=== PATIENT | male | born 1975 | race Caucasian/White ===

== ENCOUNTER → 2018-02-17 09:39 | Outpatient (CLI) | payer BC, SELFPAY ==
[2018-02-17 12:41] LABS: T4 Free Direct 0.96 ng/dL (0.76-1.46); Thyroid Stim Hormone (TSH) 1.48 uIU/mL (0.358-3.74)
== END ==
PROVIDERS: Family Provider Family Medicine; PCP Family Medicine; Visit Provider Family Medicine
DX: R61 Generalized hyperhidrosis (principal); E78.5 Hyperlipidemia, unspecified; F32.9 Major depressive disorder, single episode, unspecified; R39.11 Hesitancy of micturition; R31.9 Hematuria, unspecified
CPT/HCPCS: 36415; 84403; 84439; 84443; 87086

== ENCOUNTER 2018-02-27 18:12 | Emergency (ER) | payer BC, SELFPAY ==
[2018-02-27 18:13] VITALS: BP 149/99; PULSE 73; RESP 16; TEMP 36.7; O2SAT 97; BMI 26.6
--- NOTE | 2018-02-27 19:32 | ED.VISSUMM ---
- ER Visit Summary Date of Service: 02/27/18 Chief Complaint: Right groin discomfort History of Present Illness: The patient is a 42 M developed right groin discomfort last night. Intermittent today currently not very severe. Denies any trauma. 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 He has never had a hernia before. He thought he felt a bulge. Currently he is being treated for prostatitis on Cipro. Currently denies any dysuria. No testicular or groin trauma. Physical Examination: Well-appearing middle-age male. Vital signs are stable afebrile. H EENT exam normal lungs clear regular rate and rhythm no murmur. Abdomen soft. Nontender nondistended normal bowel sounds. No peritoneal signs. Sternal exam normal penis. Testicles and scrotum nontender nonswollen. No masses. No signs of torsion. Left inguinal canal unremarkable right inguinal canal appears to have sliding hernia. No masses appreciated. Test Results: None Emergency Department Course and Treatment: Discharged to follow-up with outpatient surgery evaluation for right inguinal hernia. Treatment Plan: Follow up with surgery for outpatient hernia evaluation. Disposition: Discharge Impression: Right inguinal hernia. This note was generated with [employer] dictation software. It may contain incorrect words, spelling, and punctuation that were not noted in review of the chart prior to signing ED Disposition - Plan for ED Patient: Chief Complaint: Male Pain/Injury Referrals: Brad Ballesteros MD [Primary Care Provider] -
--- NOTE | 2018-02-27 19:34 | ED.DEP ---
ED Disposition - Plan for ED Patient: Disposition: Home or Assisted Living Chief Complaint: Male Pain/Injury Instructions: ED Hernia Inguinal Referrals: Riccardo Valdez MD [STAFF PHYSICIAN] - 1-2 Weeks Additional Instructions: Motrin for pain. It appears you have a right inguinal hernia. Call follow-up with a general surgeon for evaluation.
== END 2018-02-27 19:54 | disposition home or self-care (01) ==
PROVIDERS: Emergency Provider Emergency Medicine; Family Provider Family Medicine; PCP Family Medicine
DX: K40.90 Unilateral inguinal hernia, without obstruction or gangrene, not specified as recurrent (principal)
CPT/HCPCS: 99282

== ENCOUNTER → 2019-05-27 | Outpatient (CLI) | payer BC, SELFPAY ==
[2018-03-06 14:06] VITALS: BMI 26.6
[2019-05-27 17:49] LABS: Erythrocyte Sedimentation Rate 7 mm/hr (0-15)
[2019-05-27 17:50] LABS: Hematocrit 42.5 % (40-54); Hemoglobin 13.8 g/dL (13.0-16.5); Mean Corp Hgb Conc 32.5 g/dL (32-36); Mean Corpuscular Hgb 28.5 pg (27.0-32.0); Mean Corpuscular Volume 87.8 fL (80-94); Mean Platelet Vol. 9.8 fl (6.2-12.0); Platelet Count 251 K/mm3 (150-450); RBC Distribution Width CV 12.8 % (11.6-14.6); RBC Distribution Width SD 40.9 fl (35.1-43.9); Red Blood Count 4.84 M/mm3 (4.6-6.2); White Blood Count 8.4 K/mm3 (4.4-11.0)
[2019-05-27 18:20] LABS: T4 Total, Thyroxin 8.8 ug/dL (4.5-12.1); Thyroid Stim Hormone (TSH) 2.82 uIU/mL (0.358-3.74)
[2019-05-29 20:07] LABS: Endomysial Antibody IgA Negative (Negative)
[2019-05-31 17:07] LABS: Immunoglobulin A 123 mg/dL (90-386); t-Transglutaminase IgA <2 U/mL (0-3)
== END | disposition home or self-care (01) ==
LOC: MTLAB 16:59
PROVIDERS: Family Provider Family Medicine; PCP Family Medicine; Referring Provider Internal Medicine Gastroenterology; Visit Provider Internal Medicine Gastroenterology
DX: R19.4 Change in bowel habit (principal); R10.9 Unspecified abdominal pain
CPT/HCPCS: 36415; 82784; 83516; 84436; 84443; 85027; 85652; 86255

== ENCOUNTER → 2023-09-25 | Outpatient (CLI) | payer BC, SELFPAY ==
--- NOTE | 2023-09-25 16:01 | RAD_ITS ---
EXAM: XR LEFT SHOULDER COMPLETE, 2 OR MORE VIEWS CLINICAL INDICATION: PAIN TECHNIQUE: Two or more views of the left shoulder. COMPARISON: 08/09/2016 FINDINGS: BONES/JOINTS: No significant abnormality. No acute fracture. No subluxation. Normal alignment. Preservation of the joint space. No sclerotic or destructive changes observed. SOFT TISSUES: Cloudlike calcification within the soft tissues along the expected course of the rotator cuff measuring up to approximately 3.5 cm. No soft tissue swelling or gas. No radiopaque foreign body. RAD/Shoulder min 2 Views IMPRESSION: Calcific tendinopathy of the rotator cuff. No acute osseous findings. Electronically Signed: Clemente Carlin DO at 23:36 EST ,
--- NOTE | 2023-09-25 16:01 | RAD_ITS ---
STUDY: X-RAY - RIGHT FOOT CLINICAL: Male, 48 years old. PAIN BASE OF SECOND TOE TECHNIQUE: 3 view(s) of the foot. COMPARISON: None. FINDINGS: There is an enthesophyte involving the posterior superior calcaneus at the site of insertion of the Achilles tendon. Normal visualized subtalar, talonavicular, calcaneocuboid, tarsal and tarsometatarsal articulations. Normal metatarsi. There is degenerative arthrosis of the metatarsophalangeal joint of the hallux . Normal tibial and fibular sesamoid bones. Normal interphalangeal joint of the great toe. Normal phalanges of the great toe. Normal second through fifth metatarsophalangeal joints. Normal interphalangeal joints and phalanges of the lesser toes. Borderline soft tissue swelling surrounding the ankle and dorsum of the foot. There is no demonstrated fracture. 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 No acute fracture or subluxation. Electronically Signed: Ladan Don MD at 22:11 EST ,
== END | disposition home or self-care (01) ==
PROVIDERS: PCP Nurse Practitioner Family; Referring Provider Nurse Practitioner Family; Visit Provider Nurse Practitioner Family
DX: M25.512 Pain in left shoulder (principal); M79.671 Pain in right foot
CPT/HCPCS: 73030; 73630

== ENCOUNTER → 2025-04-15 | Outpatient (CLI) | payer BC, SELFPAY ==
[2025-04-15 15:55] LABS: Absolute Lymphocyte Count 2.05 X10^3/uL (0.83-4.51); Absolute Neutrophil Count 5.1 X10^3/uL (2.0-7.7); Basophil# 0.04 X10^3/uL; Basophil% 0.5 % (0-1); Eosinophil# 0.13 X10^3/uL; Eosinophils% 1.6 % (0-5); Hematocrit 43.1 % (40-54); Hemoglobin 13.9 g/dL (13.0-16.5); Lymphocyte # 2.05 X10^3/ul (0.83-4.51); Lymphocyte % 25.7 % (19-41); Mean Corp Hgb Conc 32.3 g/dL (32-36); Mean Corpuscular Hgb 28.7 pg (27.0-32.0); Mean Platelet Vol. 10.2 fl (6.2-12.0); Monocyte# 0.67 X10^3/uL; Monocyte% 8.4 % (0-10); NRBC Flagged by Analyzer 0 % (0-5); Neutrophil # 5.07 X10^3/uL (2.7-7.7); Neutrophil % 63.5 % (47-70); Platelet Count 246 K/mm3 (150-450); RBC Distribution Width CV 13.5 % (11.6-14.6); RBC Distribution Width SD 43.9 fl (35.1-43.9); Red Blood Count 4.84 M/mm3 (4.6-6.2)
[2025-04-15 16:14] LABS: ALB/GLOB Ratio 1.7 RATIO (0.9-2.4); AST(SGOT) 18 U/L (<=37); Alanine Aminotransfer ALT/SGPT 23 U/L (<=46); Albumin, Serum 4.3 g/dL (3.5-5.0); Alkaline Phosphatase 95 U/L (40-129); Anion Gap 12 (5-15); BUN 16 mg/dL (4-19); Carbon Dioxide 22.9 mmol/L (21.0-32.0); Chloride 105 mmol/L (98-108); Cholesterol 147 mg/dL (<=200); Creatinine, Serum 0.73 mg/dL (0.70-1.20); EST Glomerular Filtration Rate 111 (>60); Globulin 2.5 g/dL (2.2-4.2); Glucose 91 mg/dL (70-99); High Density Lipoprotein 42 mg/dL; Low Density Lipoprotein Calc. 81 mg/dL; PSA,Total - Annual Screen 0.41 ng/mL (0.02-4.00); Potassium 4.1 mmol/L (3.3-5.1); Protein, Total 6.8 g/dL (5.9-8.4); Sodium Level 140 mmol/L (133-145); Total Bilirubin 0.36 mg/dL (0.00-1.30); Triglycerides 123 mg/dL; Very Low Density Lipoprotein 25 mg/dL (5-40); cholesterol:hdl ratio screen 3.53
[2025-04-15 17:56] LABS: Microalbumin,Random Urine < 12.0 mg/L (NO RANGE EST.); Microalbumin:Creatinine Ratio UNABLE TO CALCULATE mg/g CRE
--- OUTSIDE RECORDS SUMMARY | 2025-04-15 20:13 | XMS RPT_ITS | CCD ---
Author Organization [facility] Care Team Providers Care Post Secondary Professional Name Role Phone SUZANNE HELLER Unavailable Unavailable Maria Esther Yang Referring Unavailable Maria Esther Yang Attending Unavailable Maria Esther Yang Primary Care Unavailable Unavailable Primary Care Provider Unavailabl e Medications Current Medications Medication Drug Class(es) Dates Sig (Normalized) Sig (Original) amoxicillin 875 mg / clavulanate 125 mg oral tablet (1 source) Penicillin-class Antibacterial Start: 01-11-2024 End: 01-18-2024 take 1 tablet by mouth twice daily amoxicillin-clav ulanate potassium (AUGMENTIN) 875-125 mg per tablet Indications: Bacterial sinusitis Take 1 tablet by mouth two times a day for 7 days. 14 tablet 0 01/11/2024 01/18/2024 Active Comment on above: Take 1 tablet by jacinda th two times a day for 7 days. Completed/Discontinued Medications Medication Drug Class(es) Dates Sig (Normalized) Sig (Original) amLODIPine 2.5 mg oral tablet (1 source) Dihydropyridine Calcium Channel Jazmyn Start: 12-11-2023 take 1 tablet by mouth once amLODIPine (NORVASC) 2.5 mg tablet Take 1 tablet by mouth every afternoon. 0 12/11/2023 Active Comment on above: Take 1 tablet by jacinda th every afternoon. atorvastatin 20 mg oral tablet (1 source) HMG-CoA Reductase Inhibitor Start: 04-04-2012 take 0.5 tablet by mouth once daily atorvastatin (LIPITOR) 20 mg tablet Take 0.5 tablets by mouth once daily. 30 tablet 5 04/04/2012 Active Comment on above: Take 0.5 tablets by mouth once daily. Problems Active Problems Problem Classification Problem Date Documented Da te Episodic/Chronic Alcohol-related disorders (1 source) Alcohol use, unspecified with intoxication, unspecified; Translations: [Alcohol use, unspecified with intoxication, unspecified (HCC)] Onset: 04-26-2018 Episodic Disorders of lipid metabolism (1 source) Mixed hyperlipidemia; Translations: [Mixed hyperlipidemia] Onset: 05-28-2007 11-21-2009 Chronic Other non-traumatic joint disorders (1 source) Pain in left shoulder; Translations: [Pain in left shoulder] Onset: 10-17-2023 Episodic Other upper respiratory infections (1 source) Bacterial sinusitis; Translations: [Chronic sinusitis, unspecified] 01-11-2024 Chronic Unclassified (1 source) Alcohol Intoxication / [id number]() Onset: 04-26-2018 Past or Other Problems Problem Classification Problem Date Documented Date Episodic/Chronic Mycoses (1 source) Onychomycosis due to dermatophyte ; Translations: [Tinea unguium] Onset: 03-22-2010 04-06-2010 Episodic Other connective tissue disease (1 source) Tendinitis; Translations: [Enthesopathy, unspecified] Onset: 03-22-2010 04-06-2010 Episodic Other connective tissue disease (1 source) Pain in limb; Translations: [Pain in unspecified limb] Onset: 08-02-2010 01-04-2011 Episodic Other skin disorders (1 source) Ingrowing nail; Translations: [Ingrowing nail] Onset: 08-02-2010 01-04-2011 Episodic Results Test Name Value Interpretation Reference Range Facility [facility] 01-11-2024 CNOV Office Visit (UCWSTR ) IDA BENNETT ([id number]) 1975 M Date Time Provider Department 01/11/24 11:00 AM NANCY LORENZO [facility] During your visit today, we recorded the following information about you: Temperature Pulse Respiration Blood pressure 97.9 degrees 74/minute 16/minute 122/72 Weight 95.7 kg Nancy Lorenzo APRN.AMBULATORY ANALYST 01/11/2024 11:11 AM Signed Subjective Sinus Problem Associated symptoms include congestion and coughing. Pertinent negatives include no chills, fever, headaches, myalgias or sore throat. Ida Bennett is a 48 year old male who presents with sinus congestion and drainage for the past week. He has noticed left maxillary sinus tenderness but also recently had a dental procedure done on the upper left last week. He denies fever, chills. He has been taking OTC sinus medication. Notices a lot of post nasal drainage at night which causes him to cough. Review of Systems Constitutional: Negative for chills and fever. HENT: Positive for congestion and sinus pain. Negative for ear pain and sore throat. Respiratory: Positive for cough and sputum production. Negative for shortness of breath. Cardiovascular: Negative. Musculoskeletal: Negative for myalgias. Neurological: Negative for dizziness and headaches. BP 122/72 Pulse 74 Temp 36.6 ?C (97.9 ?F) Resp 16 Wt 95.7 kg (210 lb 15.7 oz) SpO2 98% PAST MEDICAL HISTORY Diagnosis Date Hyperlipidemia PAST SURGICAL HISTORY Procedure Laterality Date COLONOSCOPY 12/18/2001 Dr. Leo -- negative ALLERGIES Patient has no known allergies. MEDICATIONS atorvastatin (LIPITOR) 20 mg tablet Take 0.5 tablets by mouth once daily. amLODIPine (NORVASC) 2.5 mg tablet Take 1 tablet by mouth every afternoon. FAMILY HISTORY Problem Relation Age of Onset Heart Father Pacer, ? mild heart attack Ischemic Heart Disease Maternal Uncle Social History Tobacco Use Smoking status: Never Smokeless tobacco: Never Substance Use Topics Alcohol use: Yes Comment: occasional Drug use: No Objective Physical Exam Vitals and nursing note reviewed. Constitutional: General: He is not in acute distress. Appearance: Normal appearance. He is not ill-appearing. HENT: Right Ear: Tympanic membrane, ear canal and external ear normal. Left Ear: Tympanic membrane, ear canal and external ear normal. Nose: Nasal tenderness, mucosal edema, congestion and rhinorrhea present. Left Sinus: Maxillary sinus tenderness present. Mouth/Throat: Mouth: Mucous membranes are moist. Pharynx: Oropharynx is clear. Uvula midline. No oropharyngeal exudate or posterior oropharyngeal erythema. Cardiovascular: Rate and Rhythm: Normal rate and regular rhythm. Heart sounds: Normal heart sounds. Pulmonary: Effort: Pulmonary effort is normal. No respiratory distress. Breath sounds: Normal breath sounds. No wheezing or rales. Musculoskeletal: Cervical back: Neck supple. Lymphadenopathy: Cervical: No cervical adenopathy. Skin: General: Skin is warm and dry. Findings: No erythema or rash. Neurological: Mental Status: He is alert. ASSESSMENT/PLAN: 1. Bacterial sinusitis - ICD9: 473.9, 041.9, ICD10: J32.9, B96.89 - Will begin treatment with as per antibiotic as written, see orders - The patient should also be given flonase nasal spray for the first 5-7 days of treatment. - Supportive care with plenty of fluids, rest, and analgesia prn. - AMOXICILLIN 875 MG-POTASSIUM CLAVULANATE 125 MG TABLET - Follow-up with your PCP in 3-5 days if symptoms have not improved or sooner if symptoms worsen - Discussed red flags and need for immediate medical evaluation if any occur. - Discussed supportive care treatment with fluids, rest and analgesia. - Discussed expected course of illness MARA Ling Kathy, APRN.CNP 01/11/2024 11:11 AM Signed ASSESSMENT/PLAN: 1. Bacterial sinusitis - ICD9: 473.9, 041.9, ICD10: J32.9, B96.89 - Will begin treatment with as per antibiotic as written, see orders - The patient should also be given flonase nasal spray for the first 5-7 days of treatment. - Supportive care with plenty of fluids, rest, and analgesia prn. - AMOXICILLIN 875 MG-POTASSIUM CLAVULANATE 125 MG TABLET - Follow-up with your PCP in 3-5 days if symptoms have not improved or sooner if symptoms worsen - Discussed red flags and need for immediate medical evaluation if any occur. - Discussed supportive care treatment with fluids, rest and analgesia. - Discussed expected course of illness Nancy Lorenzo APRN.CNP Adult Sinusitis Patient Education What is Sinusitis? Sinusitis [tbin-nhz-uenz-tis] is inflammation of the sinuses or swelling of the lining of the sinus cavity or nose. During an infection the sinuses become blocked with fluid causing swelling of the lining of the sinuses. Symp (more content not included)... Normal [facility] Foot min 3 Viewson 3 Foot min 3 Views [facility] Imaging Services [address] [place] [address] Foot min 3 Views MR#: [id number] Acct: [id number] Name: IDA BENNETT Rep #: [id number] : 1975 M 48 From: Ladan Don MD PCP: NARENDRA Lewis Status: REG CLI Study: Foot min 3 Views Date of Exam: 09/25/23 Exam# [id number] Ordering Dr: Maria Esther Yang [id number] STUDY: X-RAY - RIGHT FOOT CLINICAL: Male, 48 years old. PAIN BASE OF SECOND TOE TECHNIQUE: 3 view(s) of the foot. COMPARISON: None. FINDINGS: There is an enthesophyte involving the posterior superior calcaneus at the site of insertion of the Achilles tendon. Normal visualized subtalar, talonavicular, calcaneocuboid, tarsal and tarsometatarsal articulations. Normal metatarsi. There is degenerative arthrosis of the metatarsophalangeal joint of the hallux . Normal tibial and fibular sesamoid bones. Normal interphalangeal joint of the great toe. Normal phalanges of the great toe. Normal second through fifth metatarsophalangeal joints. Normal interphalangeal joints and phalanges of the lesser toes. Borderline soft tissue swelling surrounding the ankle and dorsum of the foot. There is no demonstrated fracture. 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 No acute fracture or subluxation. Electronically Signed: Ladan Don MD at 22:11 EST , CC: NARENDRA Yang Building Illuminating Engineer: Signed Normal [facility] Shoulder min 2 Viewson 09-25 Shoulder min 2 Views [facility] Imaging Services [address] [place] [address] Shoulder min 2 Views MR#: [id number] Acct: [id number] Name: IDA BENNETT Rep #: [id number] : 1975 M 48 From: Clemente gordillo DO PCP: NARENDRA Lewis Status: REG CLI Study: Shoulder min 2 Views Date of Exam: 09/25/23 Exam# [id number] Ordering Dr: Maria Esther Yang [id number] EXAM: XR LEFT SHOULDER COMPLETE, 2 OR MORE VIEWS CLINICAL INDICATION: PAIN TECHNIQUE: Two or more views of the left shoulder. COMPARISON: 08/09/2016 FINDINGS: BONES/JOINTS: No significant abnormality. No acute fracture. No subluxation. Normal alignment. Preservation of the joint space. No sclerotic or destructive changes observed. SOFT TISSUES: Cloudlike calcification within the soft tissues along the expected course of the rotator cuff measuring up to approximately 3.5 cm. No soft tissue swelling or gas. No radiopaque foreign body. RAD/Shoulder min 2 Views IMPRESSION: Calcific tendinopathy of the rotator cuff. No acute osseous findings. Electronically Signed: Clemente Carlin DO at 23:36 EST , CC: ETHANOL OPERATOR-C Maria Esther Yang Building Illuminating Engineer: Signed Normal [facility] BASIC METABOLIC PANELon - Anion gap 12 mmol/L Normal - [facility] Comment on above: Performed By: #### L AB99, LAB15, LAB20, LAB62 ####[facility] [id number] [place] [address] [facility]#### [id number], LAB46 ####[facility] [id number] [place] [address] [facility] GKE[address] [place], [place] [phone] BUN (urea nitrogen) 13 mg/dL Normal -18 [facility] Comment on above: Performed By: #### L AB99, LAB15, LAB20, LAB62 ####[facility] [id number] [place] [address] [place]#### [id number], LAB46 ####[facility] [id number] [place] [address] [facility] [id number] [place], [place] [id number] Calcium 7.9 mg/dL Abnormal 8.5-10.1 [facility] Comment on above: Performed By: #### L AB99, LAB15, LAB20, LAB62 ####[facility] [id number] [place] [address] [place]#### [id number], LAB46 ####[facility] [id number] [place], [place] [address] [facility] [phone] Chloride 109 mmol/L Abnormal 98-107 [facility] Comment on above: Performed By: #### L AB99, LAB15, LAB20, LAB62 ####[facility] [id number] [place] [address] [place]#### [id number], LAB46 ####[facility] [id number] [place], [place] [address] [facility] [phone] CO2 23 mmol/L Normal 21-32 [facility] Comment on above: Performed By: #### L AB99, LAB15, LAB20, LAB62 ####[facility] [id number] [place] [address] [place]#### [id number], LAB46 ####[facility] [id number] [place] [address] [facility] [phone] Creatinine 1.0 mg/dL Normal 0.60-1.3 [facility] Comment on above: Performed By: #### L AB99, LAB15, LAB20, LAB62 ####[facility] [address]CK[address] [place] [address] [place]#### [id number], LAB46 ####[facility] TCI[phone] eGFR (black) mL/min/{1.73_m2} Normal >60 [facility] Comment on above: Result Comment: GFR is estimated using creatinine, age, gender, and race. Patient's values should be interpreted as a trend. For additional information: [email or web address] Performed By: #### L AB99, LAB15, LAB20, LAB62 ####[facility] KOF[address] [place] [address] [place]#### [id number], LAB46 ####[place] [address] eGFR (non-black) mL/min/{1.73_m2} Normal >60 [facility] Comment on above: Result Comment: GFR is estimated using creatinine, age, gender, and race. Patient's values should be interpreted as a trend. For additional information: [email or web address] Performed By: #### L AB99, LAB15, LAB20, LAB62 ####[place] [address] [place]#### [id number], LAB46 ####[address]867[address] Glucose mass conc 145 mg/dL Abnormal 74-106 [facility] Comment on above: Performed By: #### L AB99, LAB15, LAB20, LAB62 ####[place] [id number] [place] [address] [place]#### [id number], LAB46 ####[phone] Potassium molar conc 3.9 mmol/L Normal 3.5-5.1 [facility] Comment on above: Performed By: #### L AB99, LAB15, LAB20, LAB62 ####[place] [address] [place]#### [id number], LAB46 ####[place] [address] [place] [phone] Sodium 144 mmol/L Normal 136-145 [facility] Comment on above: Performed By: #### L AB99, LAB15, LAB20, LAB62 ####[place] [address] [place]#### [id number], LAB46 ####[address] [place] [phone] CBC W/DIFFon 04-26-2018 Basophils/100 WBC Auto (Bld) 0.5 % Normal [facility] Comment on above: Performed By: #### L [id number] ####[address] BSA (Body Surface Area) 0.1 K/uL Normal 0.0-0.1 [facility] Comment on above: Performed By: #### L AB293 ####[address] Eosinophils 0.1 10*3/uL Normal 0.0-0.4 [facility] Comment on above: Performed By: #### L AB293 ####[address] Eosinophils 0.5 10*3/uL Normal [facility] Comment on above: Performed By: #### L AB293 ####[address] Erythrocyte distribution width Auto Ratio (RBC) 14.5 % Normal 11.7-15.2 [facility] Comment on above: Performed By: #### L [id number] ####[address] Erythrocytes (RBC) 4.90 10*6/uL Normal 4.30-5.86 [facility] Comment on above: Performed By: #### L [id number] ####[address] Hematocrit (HCT) 41.5 % Normal 39.0-51.5 [facility] Comment on above: Performed By: #### L AB293 ####[place] [address] Hemoglobin mass conc (Bld) 13.9 g/dL Normal 13.1-17.6 [facility] Comment on above: Performed By: #### L AB293 ####[address] Lymphocytes 3.1 10*3/uL Normal 0.8-3.6 [facility] Comment on above: Performed By: #### L AB293 ####[address] Lymphocytes 26.6 10*3/uL Normal [facility] Comment on above: Performed By: #### L AB293 ####[address] MCH 28.3 pg Abnormal 28.4-33.4 [facility] Comment on above: Performed By: #### L AB293 ####[address] MCHC mass conc (RBC) 33.4 g/dL Normal 31.1-37.0 [facility] Comment on above: Performed By: #### L AB293 ####[address] MCV 84.8 fL Abnormal 85.0-99.0 [facility] Comment on above: Performed By: #### L AB293 ####[address] Monocytes 6.1 10*3/uL Normal [facility] Comment on above: Performed By: #### L AB293 ####[address] Monocytes 0.7 10*3/uL Normal 0.3-0.9 [facility] Comment on above: Performed By: #### L AB293 ####[address] Neutrophils 7.9 10*3/uL Abnormal 2.0-7.3 [facility] Comment on above: Performed By: #### L AB293 ####[facility] [id number] Neutrophils 66.3 10*3/uL Normal [facility] Comment on above: Performed By: #### L AB293 ####[facility] [id number] Platelets 294 10*3/uL Normal 154-393 [facility] Comment on above: Performed By: #### L AB293 ####[place] [id number] [address] WBC (Leukocytes) 11.9 10*3/uL Abnormal 4.0-10.5 [facility] Comment on above: Performed By: #### L AB293 ####[facility] [id number] CKon 04-26-2018 CREATINE KINASE TOTAL 117 U/L Normal 39-308 [facility] Comment on above: Performed By: #### L AB99, LAB15, LAB20, LAB62 ####[address]#### [id number], LAB46 ####[address] [id number] CT-HEAD W/O CONTRASTon 04-26 CT-HEAD W/O CONTRAST Patient: IDA BENNETT Time Out: 01:42Exam(s): CT HEAD Without Contrast EXAM: CT Head Without Intravenous Contrast CLINICAL HISTORY: Reason for Exam: . Tech Notes: fall unwitnessed TECHNIQUE: Axial computed tomography images of the head/brain without intravenous contrast. COMPARISON: FINDINGS: Brain: Unremarkable. No hemorrhage. No significant white matter disease. No edema. Ventricles: Unremarkable. No ventriculomegaly. Bones/joints: Unremarkable. No acute fracture. Soft tissues: Unremarkable. Sinuses: Unremarkable as visualized. No acute sinusitis. Mastoid air cells: Unremarkable as visualized. No mastoid effusion. Other findings: ESSION:IMPRESSION: No evidence of acute intracranial abnormality or skull fracture Normal [facility] CT-SPINE CERVICAL WO CONTRAS Ton 04-26-2018 CT-SPINE CERVICAL WO CONTRAST Patient: IDA BENNETT Time Out: 01:57Exam(s): CT C SPINE EXAM: CT Cervical Spine Without Intravenous Contrast CLINICAL HISTORY: Reason for Exam: . Tech Notes: fall unwitnessed TECHNIQUE: Axial computed tomography images of the cervical spine without intravenous contrast. COMPARISON: FINDINGS: Vertebrae: Unremarkable. No acute fracture. Discs/spinal canal/neural foramina: Multilevel degenerative changes mostly of the mid cervical spine. C2-3: No significant central canal or foraminal stenosis. C3-4: Mild disc osteophyte complex and left-sided uncovertebral hypertrophy. Mild left foraminal narrowing. C4-5: Disc osteophyte complex and uncovertebral hypertrophy, greater on the left side. Moderate central canal stenosis, moderate left and mild right foraminal stenosis. C5-6: Disc osteophyte complex and posterior longitudinal ligament ossification. Moderate central canal and bilateral foraminal stenoses. C6-7: Mild disc osteophyte complex and posterior longitudinal ligamentous ossification. Mild central canal stenosis. Soft tissues: Unremarkable. Lung apices: Unremarkable as visualized. Other findings: ESSION:IMPRESSION: No evidence of acute fracture or malalignment. Degenerative changes of the mid cervical spine. Normal [facility] EKG STANDARD 12 LEADon 04-26 Pulse (Heart Rate) RR Interval= 674 msP R Interval= 186 msQRSD Interval= 116 msQT Interval= 386 msQTc Interval= 470 msHeart Rate= 89 msP [place]= 46 degQRS [place]= 18 degT Wave [place]= 41 degI: 40 [place]= 78 degT: 40 [place]= -13 degST [place]= 52 degSinus rhythm Nonspecific intraventricular conduction delay Electronically Signed by: Aba Tierney) 27-Apr-2018 17:14:04 Date and Time of Study: 2018-04-25 23:47:05 Normal [facility] ETHANOLon 04-26-2018 Ethanol [facility] Comment on above: Result Comment: Resu lts of this test should always be interpreted in conjunction with the patient's medical history, clinical presentation and other findings.The pharmacological response to blood alcohol levels may vary from individual to individual. The fatal concentration has been reported to be greater than 400 mg/dL. Performed By: #### L AB99, LAB15, LAB20, LAB62 ####[facility] IHP[address] [place] [id number] [place]#### [id number], LAB46 ####[address] [address] [facility] [phone] Ethanol 181 mg/dL Abnormal <=3 [facility] Comment on above: Performed By: #### L AB99, LAB15, LAB20, LAB62 ####[place] [id number] [place]#### [id number], LAB46 ####[place] [address] LACTATE/LACTIC ACIDon 2017 Lactate 2.3 mmol/L Abnormal 0.4-2.0 [facility] Comment on above: Performed By: #### L AB99, LAB15, LAB20, LAB62 ####[place] [address] [place]#### [id number], LAB46 ####[address] LACTATE/LACTIC ACID Normal [facility] Comment on above: Result Comment: Put on ice - Place specimen on ice immediately after collection and transport to lab. Performed By: #### L AB99, LAB15, LAB20, LAB62 ####[place] [address] [place]#### [id number], LAB46 ####[place] [address] Lactate 2.5 mmol/L Abnormal 0.4-2.0 [facility] Comment on above: Performed By: #### L AB99, LAB15, LAB20, LAB62 ####[place] [id number] [place]#### [id number], LAB46 ####[place] [address] LACTATE/LACTIC ACID Normal [facility] Comment on above: Result Comment: Put on ice - Place specimen on ice immediately after collection and transport to lab.Put on ice - Place specimen on ice immediately after collection and transport to lab. Performed By: #### L AB99, LAB15, LAB20, LAB62 ####[facility] [id number] [place] [address] [place]#### [id number], LAB46 ####[place] [address] Lactate 2.4 mmol/L Abnormal 0.4-2.0 [facility] Comment on above: Performed By: #### L [id number] ####[place] [address] LACTATE/LACTIC ACID Normal [facility] Comment on above: Result Comment: Put on ice - Place specimen on ice immediately after collection and transport to lab. Performed By: #### L [id number] ####[place] [address] LIPASEon 04-26-2018 Lipase 119 U/L Normal 73-393 [facility] Comment on above: Performed By: #### L AB99, LAB15, LAB20, LAB62 ####[place] [address] [place]#### [id number], LAB46 ####[place] [address] LIVER PROFILE PANELon 2017 Alanine aminotransferase (ALT) 28 U/L Normal 12-78 [facility] Comment on above: Performed By: #### L AB99, LAB15, LAB20, LAB62 ####[facility] [id number] [place] [address] [place]#### [id number], LAB46 ####[facility] [id number] [place] [address] [place] [phone] Albumin 3.9 g/dL Normal 3.4-5.0 [facility] Comment on above: Performed By: #### L AB99, LAB15, LAB20, LAB62 ####[facility] [id number] [place] [address] [place]#### [id number], LAB46 ####[address] [address] [facility] [phone] Alkaline phosphatase (ALP) 100 U/L Normal 45-117 [facility] Comment on above: Performed By: #### L AB99, LAB15, LAB20, LAB62 ####[place] [id number] [place]#### [id number], LAB46 ####[address] [address] [place] Aspartate aminotransferase (AST) 17 U/L Normal 15-37 [facility] Comment on above: Performed By: #### L AB99, LAB15, LAB20, LAB62 ####[address] [address] [place]#### [id number], LAB46 ####[address] [address] [facility] [address] Bilirubin (direct) 0.10 mg/dL Normal 0.00-0.20 [facility] Comment on above: Performed By: #### L AB99, LAB15, LAB20, LAB62 ####[facility] [id number] [place] [address] [place]#### [id number], LAB46 ####[facility] [id number] [place] [address] [place] [phone] Bilirubin Ql (U) 0.4 mg/dL Normal 0.2-1.0 [facility] Comment on above: Performed By: #### L AB99, LAB15, LAB20, LAB62 ####[facility] SDM[address] [place] [address] [place]#### [id number], LAB46 ####[address] [place] [phone] Protein 7.4 g/dL Normal 6.4-8.2 [facility] Comment on above: Performed By: #### L AB99, LAB15, LAB20, LAB62 ####[place] [address] [place]#### [id number], LAB46 ####[place] [id number] TROPONIN Ion 04-26-2018 Troponin I.cardiac mass conc ng/mL Normal 0.000-0.045 [facility] Comment on above: Performed By: #### L AB99, LAB15, LAB20, LAB62 ####[facility] [id number] [place] [address] [place]#### [id number], LAB46 ####[place] [id number] Troponin I.cardiac mass conc Normal [facility] Comment on above: Result Comment: Trop onin I 0.045-0.600 is abnormal but not clinically relevant. Please correlate with other clinical findings. Troponin I >0.600 is clinically relevant in accordance with WHO criteria. Performed By: #### L AB99, LAB15, LAB20, LAB62 ####[facility] [id number] [place], [place] [id number] [place]#### [id number], LAB46 ####[place] [id number] Vital Signs Date Time Vital Sign Value Performing Clinician Margo silva 01-11-2024 11:00-0500 Body temperature 97.9 [degF] Nancy Praisler-Brian IMAGE ASSEMBLER.AMBULATORY ANALYST Work Phone: [facility] 01-11-2024 11:00-0500 Body weight 95.7 kg Nancy Praisler-Brian IMAGE ASSEMBLER.AMBULATORY ANALYST Work Phone: [facility] 01-11-2024 11:00-0500 Diastolic blood pressure 72 mm[Hg] Nancy Praisler-Wood IMAGE ASSEMBLER.AMBULATORY ANALYST Work Phone: [facility] 01-11-2024 11:00-0500 Heart rate 74 /min Nancy Praisler-Wood IMAGE ASSEMBLER.AMBULATORY ANALYST Work Phone: [facility] 01-11-2024 11:00-0500 Respiratory rate 16 /min Nancy Praisler-Wood IMAGE ASSEMBLER.AMBULATORY ANALYST Work Phone: [facility] 01-11-2024 11:00-0500 SaO2% (BldA) [Mass fraction] 98 % Nancy Praisler-Wood IMAGE ASSEMBLER.AMBULATORY ANALYST Work Phone: [facility] 01-11-2024 11:00-0500 Systolic blood pressure 122 mm[Hg] Nancy Praisler-Wood IMAGE ASSEMBLER.AMBULATORY ANALYST Work Phone: [facility] Encounters Encounter Date Encounter Type Care Provider Facility Start: 01-11-2024 End: 01-11-2024 ambulatory Facility:[facility] Start: 01-11-2024 End: 01-11-2024 Patient encounter procedure Nancy Praisler-Wood IMAGE ASSEMBLER.AMBULATORY ANALYST Work Phone: [facility] Comment on above: Bacterial sinusitis (Primary Dx) Start: 09-25-2023 End: 09-25-2023 ambulatory Maria Esther Yang Facility:[facility] Start: 04-26-2018 End: 04-26-2018 Emergency department patient visit SUZANNE CALDWELLLI [facility] Procedures Date Procedure Procedure Detail Performing Clinician Start: 10-02-2011 Lipid 1996 panel - S faheem or Plasma Nancy Lorenzo APRN.MIKKI Work Phone: Plan of Treatment Date Care Activity Detail Author Start: 11-04-2023 Depression Assessment Depression Ass essment [facility] Start: 07-05-2023 Covid-19 Vaccine ( season) Covid-19 Vaccine ( season) [facility] Start: 07-05-2023 Influenza vaccination Influenza Vacc ine (#1) [facility] Start: 04-25-2021 Diabetes Screening Diabetes Screenin g [facility] Start: 2021 Screening for malign ant neoplasm of colon [facility] Start: 01-03-2021 Urine microalbumin profile DTa P,Tdap,Td Vaccine (2 - Td or Tdap) [facility] Start: 10-02-2016 Lipid panel Lipid Screening [facility] Start: 1995 Hepatitis B Vaccine (1 of 3 - 19+ 3-dose series) Hepatitis B Vaccine (1 of 3 - 19+ 3-dose series) [facility] Start: 1994 Hepatitis C screening Hepatitis C Sc reening [facility] Start: 1994 HIV screening HIV Screening [facility] Immunizations Immunization Date Immunization Notes Care Provider Fa milanty 01-03-2011 tetanus toxoid, redu marsha diphtheria toxoid, and acellular pertussis vaccine, adsorbed Nancy Lorenzo APRN.MIKKI Work Phone: [facility] Payers Date Payer Category Payer Self-pay 2021 Unknown [id number] 2021 Unknown [employer] PPO [id number] 2021-Present [phone] [id number] [place] [address] PPO [id number] Blue Cross Blue [facility] [id number] Unknown [id number] Social History Date Type Detail Facility [facility] Start: 01-11-2024 Alcohol intake Current drinke r of alcohol (finding) [facility] Start: 01-11-2024 History of Social function [facility] Start: 01-11-2024 Tobacco use panel Alex delgado [facility] Start: 04-04-2012 [facility] Start: 1975 Sex Assigned At Not on file C [facility] Progress note 01-11-2024 Note Date & Type Note Facility 01-11-2024 Note HNO ID: [id number] Author: NANCY LORENZO APRN.AMBULATORY ANALYST Service: ? Author Type: Nurse Practitioner Type: Progress Notes Filed: 01/11/2024 11:11 Note Text: Subjective Sinus Problem Associated symptoms include congestion and coughing. Pertinent negatives include no chills, fever, headaches, myalgias or sore throat. Ida Bennett is a 48 year old male who presents with sinus congestion and drainage for the past week. He has noticed left maxillary sinus tenderness but also recently had a dental procedure done on the upper left last week. He denies fever, chills. He has been taking OTC sinus medication. Notices a lot of post nasal drainage at night which causes him to cough. Review of Systems Constitutional: Negative for chills and fever. HENT: Positive for congestion and sinus pain. Negative for ear pain and sore throat. Respiratory: Positive for cough and sputum production. Negative for shortness of breath. Cardiovascular: Negative. Musculoskeletal: Negative for myalgias. Neurological: Negative for dizziness and headaches. BP 122/72 Pulse 74 Temp 36.6 ?C (97.9 ?F) Resp 16 Wt 95.7 kg (210 lb 15.7 oz) SpO2 98% PAST MEDICAL HISTORY Diagnosis Date Hyperlipidemia PAST SURGICAL HISTORY Procedure Laterality Date COLONOSCOPY 12/18/2001 Dr. Leo -- negative ALLERGIES Patient has no known allergies. MEDICATIONS atorvastatin (LIPITOR) 20 mg tablet Take 0.5 tablets by mouth once daily. amLODIPine (NORVASC) 2.5 mg tablet Take 1 tablet by mouth every afternoon. FAMILY HISTORY Problem Relation Age of Onset Heart Father Pacer, ? mild heart attack Ischemic Heart Disease Maternal Uncle Social History Tobacco Use Smoking status: Never Smokeless tobacco: Never Substance Use Topics Alcohol use: Yes Comment: occasional Drug use: No Objective Physical Exam Vitals and nursing note reviewed. Constitutional: General: He is not in acute distress. Appearance: Normal appearance. He is not ill-appearing. HENT: Right Ear: Tympanic membrane, ear canal and external ear normal. Left Ear: Tympanic membrane, ear canal and external ear normal. Nose: Nasal tenderness, mucosal edema, congestion and rhinorrhea present. Left Sinus: Maxillary sinus tenderness present. Mouth/Throat: Mouth: Mucous membranes are moist. Pharynx: Oropharynx is clear. Uvula midline. No oropharyngeal exudate or posterior oropharyngeal erythema. Cardiovascular: Rate and Rhythm: Normal rate and regular rhythm. Heart sounds: Normal heart sounds. Pulmonary: Effort: Pulmonary effort is normal. No respiratory distress. Breath sounds: Normal breath sounds. No wheezing or rales. Musculoskeletal: Cervical back: Neck supple. Lymphadenopathy: Cervical: No cervical adenopathy. Skin: General: Skin is warm and dry. Findings: No erythema or rash. Neurological: Mental Status: He is alert. ASSESSMENT/PLAN: 1. Bacterial sinusitis - ICD9: 473.9, 041.9, ICD10: J32.9, B96.89 - Will begin treatment with as per antibiotic as written, see orders - The patient should also be given flonase nasal spray for the first 5-7 days of treatment. - Supportive care with plenty of fluids, rest, and analgesia prn. - AMOXICILLIN 875 MG-POTASSIUM CLAVULANATE 125 MG TABLET - Follow-up with your PCP in 3-5 days if symptoms have not improved or sooner if symptoms worsen - Discussed red flags and need for immediate medical evaluation if any occur. - Discussed supportive care treatment with fluids, rest and analgesia. - Discussed expected course of illness Nancy Lorenzo APRN.[facility] Instructions 01-11-2024 Patient Instructions Note Date & Type Note Facility 01-11-2024 Instructions Nancy Lorenzo APRN.MIKKI - 01/11/2024 11:11 AM EST Images from the original note were not included. ASSESSMENT/PLAN: 1. Bacterial sinusitis - ICD9: 473.9, 041.9, ICD10: J32.9, B96.89 - Will begin treatment with as per antibiotic as written, see orders - The patient should also be given flonase nasal spray for the first 5-7 days of treatment. - Supportive care with plenty of fluids, rest, and analgesia prn. - AMOXICILLIN 875 MG-POTASSIUM CLAVULANATE 125 MG TABLET - Follow-up with your PCP in 3-5 days if symptoms have not improved or sooner if symptoms worsen - Discussed red flags and need for immediate medical evaluation if any occur. - Discussed supportive care treatment with fluids, rest and analgesia. - Discussed expected course of illness Nancy Lorenzo APRN.CNP Adult Sinusitis Patient Education What is Sinusitis? Sinusitis [cdgl-lkv-wkcv-tis] is inflammation of the sinuses or swelling of the lining of the sinus cavity or nose. During an infection the sinuses become blocked with fluid causing swelling of the lining of the sinuses. Symptoms: (viral and bacterial infections) Stuffy nose Runny nose Postnasal drip Fever Toothache Headache Tiredness Cough Sore throat Face and head pressure and or pain Common causes: 98% of sinus infections are viral caused by viruses. Risk Factors of Sinusitis Include: Allergies, air pollution, indoor humidity and outdoor temperature changes, andstructural changes in the nose may contribute to sinus pain, pressure and congestion. When to get help? Temperature greater than 100.4 F Symptoms lasting more than 10 days or worsening symptoms greater than 7-10 days. If you do not improve or worsen after a course of antibiotics, you should be re-examined. Diagnosis and Treatment: Your healthcare provider will ask a number of questions about your symptoms and how long they have occurred. If symptoms of sinusitis persist greater than 10 days, it is possible you have a bacterial sinus infection and an antibiotic is prescribed. If it is viral, antibiotics will not help. You may be instructed to take leai-gtl-xaacomn medications for symptoms. including fever reducers acetaminophen or ibuprofen, nasal saline spray, cough and cold preparations and decongestants as prescribed by the physician, nurse practitioner or physician front end assistant. Self-Care and Prevention: Rest Fluids for hydration Good hand washing Humidifier Avoid smoking and exposure to second hand smoke Avoid sick contacts documented in this encounter [facility] History of Present illness Narrative 01-11-2024 Nancy Lorenzo APRN.CNP - 01/11/2024 11:05 AM EST Note Date & Type Note Facility 01-11-2024 History of Presen t illness Narrative Subjective Sinus Problem Associated symptoms include congestion and coughing. Pertinent negatives include no chills, fever, headaches, myalgias or sore throat. Ida Bennett is a 48 year old male who presents with sinus congestion and drainage for the past week. He has noticed left maxillary sinus tenderness but also recently had a dental procedure done on the upper left last week. He denies fever, chills. He has been taking OTC sinus medication. Notices a lot of post nasal drainage at night which causes him to cough. Review of Systems Constitutional: Negative for chills and fever. HENT: Positive for congestion and sinus pain. Negative for ear pain and sore throat. Respiratory: Positive for cough and sputum production. Negative for shortness of breath. Cardiovascular: Negative. Musculoskeletal: Negative for myalgias. Neurological: Negative for dizziness and headaches. BP 122/72 Pulse 74 Temp 36.6 C (97.9 F) Resp 16 Wt 95.7 kg (210 lb 15.7 oz) SpO2 98% PAST MEDICAL HISTORY Diagnosis Date Hyperlipidemia PAST SURGICAL HISTORY Procedure Laterality Date COLONOSCOPY 12/18/2001 Dr. Leo -- negative ALLERGIES Patient has no known allergies. MEDICATIONS atorvastatin (LIPITOR) 20 mg tablet Take 0.5 tablets by mouth once daily. amLODIPine (NORVASC) 2.5 mg tablet Take 1 tablet by mouth every afternoon. FAMILY HISTORY Problem Relation Age of Onset Heart Father Pacer, ? mild heart attack Ischemic Heart Disease Maternal Uncle Social History Tobacco Use Smoking status: Never Smokeless tobacco: Never Substance Use Topics Alcohol use: Yes Comment: occasional Drug use: No Objective Physical Exam Vitals and nursing note reviewed. Constitutional: General: He is not in acute distress. Appearance: Normal appearance. He is not ill-appearing. HENT: Right Ear: Tympanic membrane, ear canal and external ear normal. Left Ear: Tympanic membrane, ear canal and external ear normal. Nose: Nasal tenderness, mucosal edema, congestion and rhinorrhea present. Left Sinus: Maxillary sinus tenderness present. Mouth/Throat: Mouth: Mucous membranes are moist. Pharynx: Oropharynx is clear. Uvula midline. No oropharyngeal exudate or posterior oropharyngeal erythema. Cardiovascular: Rate and Rhythm: Normal rate and regular rhythm. Heart sounds: Normal heart sounds. Pulmonary: Effort: Pulmonary effort is normal. No respiratory distress. Breath sounds: Normal breath sounds. No wheezing or rales. Musculoskeletal: Cervical back: Neck supple. Lymphadenopathy: Cervical: No cervical adenopathy. Skin: General: Skin is warm and dry. Findings: No erythema or rash. Neurological: Mental Status: He is alert. ASSESSMENT/PLAN: 1. Bacterial sinusitis - ICD9: 473.9, 041.9, ICD10: J32.9, B96.89 - Will begin treatment with as per antibiotic as written, see orders - The patient should also be given flonase nasal spray for the first 5-7 days of treatment. - Supportive care with plenty of fluids, rest, and analgesia prn. - AMOXICILLIN 875 MG-POTASSIUM CLAVULANATE 125 MG TABLET - Follow-up with your PCP in 3-5 days if symptoms have not improved or sooner if symptoms worsen - Discussed red flags and need for immediate medical evaluation if any occur. - Discussed supportive care treatment with fluids, rest and analgesia. - Discussed expected course of illness Nancy Lorenzo APRN.AMBULATORY ANALYST documented in this encounter [facility] Evaluation note Note Date & Type Note Facility Evaluation note Diagnosis Bacterial sinusitis- Primary Unspecified sinusitis (chronic) documented in this encounter [facility] Summary Purpose Family History No Family History Records FoundNo Family History Records FoundNo Family History Records Found Advance Directives No Advanced Directives Records FoundNo Advanced Directives Records FoundNo Advanced Directives Records Found Additional Source Comments (unrecognized sect ion and content) No Status Records FoundNo Status Records FoundNo Status Records Found INFORMATION SOURCE (unrecogn ized section and content) DATE CREATED AUTHOR 04/27/2018 [facility] DATE CREATED AUTHOR AUTHOR'S ORGANIZ ATION 10/19/2023 [facility] DATE CREATED AUTHOR AUTHOR'S ORGANIZ ATION 01/12/2024 [facility] Source Comments (unrecognize d section and content) In the event this informatio n is protected by the Federal Confidentiality of Alcohol and Drug Abuse Patient Records regulations: The Federal rules restrict any use of the information to criminally investigate or prosecute any alcohol or drug abuse patient.[facility] Reason for Visit (unrecogniz ed section and content) Reason Comments Sinus Problem sinus pressure, hansa ochoa x 1 week FOR RECORDS PERTAINING TO PATIENTS WHO ARE OR HAVE BEEN ENROLLED IN A CHEMICAL DEPENDENCY/SUBSTANCEABUSE PROGRAM, SOME INFORMATION MAY BE OMITTED. This clinical summary was aggregated from multiple sources. Caution should be exercised in using it in the provision of clinical care. This summary normalizes information from multiple sources, and as a consequence, information in this document may materially change the coding, format and clinical context of patient data. In addition, data may be omitted in some cases. CLINICAL DECISIONS SHOULD BE BASED ON THE PRIMARY CLINICAL RECORDS. [facility] [employer] [facility]. provides no warranty or guarantee of the accuracy or completeness of information in this document.
== END | disposition home or self-care (01) ==
LOC: BFHLAB 10:12
PROVIDERS: PCP Nurse Practitioner Family; Visit Provider Nurse Practitioner Family
DX: Z00.00 Encounter for general adult medical examination without abnormal findings (principal); Z12.5 Encounter for screening for malignant neoplasm of prostate; I10 Essential (primary) hypertension; E78.00 Pure hypercholesterolemia, unspecified
CPT/HCPCS: 36415; 80053; 80061; 82043; 82570; 84153; 85025; G0103